=== PATIENT | male | born 1990 | race Caucasian/White ===

== ENCOUNTER 2018-03-14 20:49 | Emergency (ER) | payer OTHER ==
[~2018-03-14] VITALS: Ht 188 cm; Wt 64.2 kg
[~2018-03-14 20:49] MED LIST: GABA100C4 PO; LEVEMIR SQ; LORTA5 PO; NOVORP2 SQ; TRAM50TA PO
[2018-03-14 21:00] VITALS: BP 110/62; PULSE 87; RESP 18; TEMP 98.2; O2SAT 97
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
[2018-03-14] MEDS ORDERED: IBUPROFEN 600 MG TAB PO ONE (22:00)
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
[2018-03-14] MEDS ORDERED: CYCL10TA PO (22:57)
== END 2018-03-14 23:14 | disposition home or self-care (01) ==
LOC: PHEFT 20:49
DX: S16.1XXA Strain of muscle, fascia and tendon at neck level, initial encounter (principal); M25.511 Pain in right shoulder; M25.551 Pain in right hip; M25.561 Pain in right knee; V89.2XXA Person injured in unspecified motor-vehicle accident, traffic, initial encounter; E10.9 Type 1 diabetes mellitus without complications; F90.9 Attention-deficit hyperactivity disorder, unspecified type; F12.90 Cannabis use, unspecified, uncomplicated; Z87.891 Personal history of nicotine dependence
CPT/HCPCS: 71045; 72050; 73030; 73552; 99284